=== PATIENT | female | born 1985 | race Caucasian/White ===

== ENCOUNTER 2017-04-23 06:00 | Inpatient (IN) ==
[2017-04-23] MEDS ORDERED: D5LR 1,000 ML IV PRN (06:14)
[2017-04-23] MEDS ORDERED: ACETAMINOPHEN 500 MG TABLET PO PRN (06:14)
[2017-04-23] MEDS ORDERED: METHYLERGONOVINE 0.2 MG/ML INJECTION IM PRN (06:14)
[2017-04-23] MEDS ORDERED: CARBOPROST 250 MCG/ML INJECTION IM PRN (06:14)
[2017-04-23] MEDS ORDERED: MAG-AL + SIM ORAL LIQUID 30ml PO PRN (06:14)
[2017-04-23] MEDS ORDERED: LIDOCAINE 1% (10mg/ml) 2mL INJ PF SDV ID PRN (06:14)
[2017-04-23] MEDS ORDERED: CALCIUM CARBONATE Chewable 500mg TABLET PO PRN (06:14)
[2017-04-23] MEDS ORDERED: OXYTOCIN DRIP 30 UNIT/500 ML ML IV PRN (06:14)
--- OUTSIDE RECORDS SUMMARY | 2017-04-23 06:18 | External Medical Summary | Continuity of Care Document ---
:1985 Author Organization [facility] Address [address] [place], [place] [id number] Phone Allergies, Adverse Reactions, Alerts Substance Reaction Severity Status No Known Drug Allergies Unknown Active Medications Medication Instructions Dosage Effective Dates Status Comments (start - stop) levothyroxine 50 mcg take 1 tablet by 50 MCG - Active tablet oral route every day Vitamin take 1 tablet by Not Available - Active tablet oral route every day ferrous sulfate 325 take 1 tablet by 325 MG - Active mg (65 mg iron) ORAL route 2 times tablet every day Problems Condition Effective Dates (start - stop) Clinical Status Maternal care for excess growth, - second tri, unsp Endo, nutritional and metab diseases - comp preg, second tri 18 weeks gestation of - Maternal care for excess growth, - second tri, unsp Endo, nutritional and metab diseases - comp preg, second tri 20 weeks gestation of - Endo, nutritional and metab diseases - comp preg, second tri Encounter for suprvsn of normal - , second trimester 27 weeks gestation of - Endo, nutritional and metab diseases - comp preg, second tri Encounter for suprvsn of normal - , second trimester 14 weeks gestation of - Pap Smear Screening, Cervix - Encounter for suprvsn of normal - , first trimester 9 weeks gestation of - Encounter for suprvsn of normal - , second trimester 20 weeks gestation of - Encounter for suprvsn of normal - , third trimester 29 weeks gestation of - Encounter for suprvsn of normal - , third trimester 31 weeks gestation of - Procedures Procedure Date Unknown Results Test Name Date and Time Measure Units Reference Range Abnormal Flag Comments Unknown Advance Directives Directive Yes / No Effective Date File Name Unknown Encounters Encounter Practice Location Reason(s) Diagnoses Date Provider Care Description For Visit Team Members Soha [place] Encounter for Nov-0 [place] [facility] suprvsn of 9- [facility], normal 7 [address], , third [place], [id number] Center [id number], weeks gestation Dr [facility] of 120, tel:[phone], [id number] , [place]. tel:[phone] Soha [place] Encounter for Oct-2 [place] [facility] suprvsn of 6-201 [facility] CINDY, normal 7 [address], , third [place], [id number] Center [id number], weeks gestation Dr [facility] of 120, tel:[phone], [id number] , [place]. tel:[phone] Soha [place] Oct-2 [place] [facility] 4-201 [facility], 7 700 [address], [place], Center [id number], [facility] 120, tel:[phone] [facility] [place], [id number] , [place]. tel:[phone] Soha [place] Oct-1 [place] [facility] 0-201 [facility], 7 700 [address], [place], Center [id number], , [facility] 120, tel:[phone], [id number] , [place]. tel:[phone] Soha [place] Endo, Oct-0 [place] [facility] nutritional and 9-201 [facility], metab diseases 7 [address], comp preg, [place], second Center [id number], triEncounter for [facility] suprvsn of 120, tel:[phone] normal [place], [address] , [place], second [id number] , [place]. weeks gestation tel:[phone] [facility] [place] Encounter for Aug-2 [place] [facility] suprvsn of 8-201 [facility], normal 7 [address], , [place], second Center [id number], [email or web address] [place] weeks gestation 120, tel:+21 of [place], [address] [place], [id number] , [place]. tel: [phone] [facility] [place] Maternal care Aug-2 [place] [facility]om[facility] Ultrasound for excess 8-201 [facility], growth, second 7 [address], tri, unspEndo, [place], nutritional and Center [id number], metab diseases , [facility] comp preg, 120, tel:+ second tri20 [place], [address] weeks gestation [place], of [id number] , [place]. tel: [phone] Soha [place] Maternal care Nov-1 [place] In Womens for excess 7-201 [facility], growth, second 7 [address], tri, unspEndo, [place], nutritional and Center [id number], metab diseases Dr [facility] comp preg, 120, tel:[phone] second tri18 [place], [address] weeks gestation [place], of [id number] , [place]. tel: [phone] Soha [place] Endo, Oct- [place] [facility] nutritional and -201 [facility], metab diseases 7 [address], comp preg, [place], second Center [id number], [facility], suprvsn of Suite tel:+[phone] normal 120, [address] , [place], second [place], [id number] [address], weeks gestation [place]. of tel: [phone] Soha [place] Greg- [place] In Womens 5-201 [facility], 7 700 [address], [place], Center [id number], [place] 120, tel:+21 [place], [address] [place], [id number] , [place]. tel: [phone] [facility] [place] Pap Smear Sep- [place] [facility]om[facility] Screening, 4-201 [facility] CINDY, CervixEncounter 7 [address], for suprvsn of [place], normal Center [id number], , first [place] trimester9 weeks 120, tel:[phone] gestation of [place], [address] [place], [id number] , [place]. tel: [phone] Soha [place] Sep- [place] In Womens 2-201 [facility], 7 700 [address], [place], Center [id number], [place] 120, tel:[phone] [place] [address] [place], [id number] , [place]. tel: [phone] Family History Family Member Diagnosis Age At Onset No family history of Pulmonary Embolism Mother Gynecological Problem 27 No family history of Uterine Cancer No family history of Venous Thrombosis No family history of Breast Cancer No family history of Colon Cancer Immunizations Vaccine Date Status Comments Tdap completed Source: Other Provider Payers Payer name Insurance type Covered alliance party ID Authorization(s) [facility] - [id number] Medicaid Social History Type Description Quantity Date Captured Alcohol Use Details No Caffeine Use Details Unknown Tobacco Use Status Unknown Smoking Status Never smoker Vital Signs Date / Height Weight BMI Pulse Blood Temperature Respiratory Body Head BMI Time: Rate Pressure Rate Surface Circumference percentile Area 35.8 8 3:41 kg/m PM eter (2) Chief Complaint And Reason For Visit Unknown Chief Complaint And Reason For Visit Reason For Referral Reason For Referral Unknown Plan Of Care Date Type Action Status Appointment Katy Ayers BOOKED Future Order: Radiology Order Complete OB Ultrasound > 14 Ordered Weeks ([id number]) Date Type Problem Goal Intervention Status Start Date Unknown. History Of Present Illness Encounter Date Complaint History Of Present Illness This patient has no known history of present illness Functional Status Encounter Date Functional Assessment Cognitive Assessment Unknown Medications Administered Medication Instructions Dosage Effective Dates (start - stop) Status Comments Drug Treatment Unknown Instructions Date Instruction Additional Information HIV and other routine tests risk factors identified by history anticipated course of care nutrition and weight gain counseling, special diet toxoplasmosis precautions (cats / raw meat) exercise indications for ultrasound environmental / work hazards travel tobacco (ask, advise, assess, assist and arrange) alcohol illicit / recreational drugs use of any medications (including supplements, vitamins, herbs, OTC drugs) smoking counseling domestic violence seat belt use genetic testing new ob handbook Zika virus assessment & precautions 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
--- OUTSIDE RECORDS SUMMARY | 2017-04-23 06:18 | External Medical Summary | Continuity of Care Document ---
:1985 Author Organization [facility] Address [address] [place], [place] [id number] Phone Allergies, Adverse Reactions, Alerts Substance Reaction Severity Status No Known Drug Allergies Unknown Active Medications Medication Instructions Dosage Effective Dates Status Comments (start - stop) levothyroxine 50 mcg take 1 tablet by 50 MCG - Active tablet oral route every day Vitamin take 1 tablet by Not Available - Active tablet oral route every day Problems Condition Effective Dates (start - stop) Clinical Status Maternal care for excess growth, - second tri, unsp Endo, nutritional and metab diseases - comp preg, second tri 20 weeks gestation of - Maternal care for excess growth, - second tri, unsp Endo, nutritional and metab diseases - comp preg, second tri 18 weeks gestation of - Endo, nutritional and metab diseases - comp preg, second tri Encounter for suprvsn of normal - , second trimester 14 weeks gestation of - 9 weeks gestation of - Pap Smear Screening, Cervix - Encounter for suprvsn of normal - , first trimester 20 weeks gestation of - Encounter for suprvsn of normal - , second trimester Procedures Procedure Date Ultrasound exam of preg uterus, complete Results Test Name Date and Time Measure Units Reference Range Abnormal Flag Comments Unknown Advance Directives Directive Yes / No Effective Date File Name Unknown Encounters Encounter Practice Location Reason(s) Diagnoses Date Provider Care Description For Visit Team Members Soha [place] 20 weeks gestation [place] [facility] 8-201 [facility], pregnancyEncounter 7 700 [address] for suprvsn of Medical [address]22, normal , [facility], second trimester [place], 120, [id number], [facility] [place], tel:[phone] , [place]. tel: [phone] [facility] [place] Maternal care for Aug-2 [place] [facility] Ultrasound excess 8-201 [facility], growth, second tri, 7 700 PO Box unspEndo, Medical 1522, nutritional and Center [place], metab diseases comp [place], preg, second tri20 120, [id number], weeks gestation of [facility] [place], tel:[phone] , [place]. tel: [phone] [facility] [place] Maternal care for Aug-1 [place] In Womens excess 7-201 [facility], growth, second tri, 7 700 PO Box unspEndo, Medical 1522, nutritional and [facility], metab diseases comp [place], preg, second tri18 120, [id number], weeks gestation of [facility] [place], tel:[phone] , [place]. tel: [phone] [facility] [place] Endo, nutritional Oct-2 [place] [facility]omens and metab diseases 1-201 [facility], comp preg, second 7 700 PO Box triEncounter for Medical 1522, suprvsn of [facility], , second Drive, [place], [email or web address] weeks Suite , gestation of 120, [place], tel:+ [place], 114, [place]. tel: [phone] [facility] [place] Greg-1 [place] In Womens 5-201 [facility], 7 700 PO Box Medical [address]22, [facility], [place], 120, [id number], [facility] [place], tel:[phone] , [place]. tel: [phone] [facility] 9 weeks gestation Greg-1 [place] In Womens of pregnancyPap 4-201 [facility], Smear Screening, 7 700 PO Box CervixEncounter for Medical 1522, suprvsn of [facility], , first [place], trimester 120, , [place], tel: [phone] , [place]. tel: [phone] Soha [place] Sep- [place] In Womens 2-201 [facility], 7 700 PO [address] Medical [address], [place], [place], 120, , [place], tel: [phone] , [place]. tel: [phone] Family History Family Member Diagnosis Age At Onset No family history of Pulmonary Embolism Mother Gynecological Problem 27 No family history of Uterine Cancer No family history of Venous Thrombosis No family history of Breast Cancer No family history of Colon Cancer Immunizations Vaccine Date Status Comments Unknown Payers Payer name Insurance type Covered green party ID Authorization(s) [facility] - [id number] Medicaid Social History Type Description Quantity Date Captured Unknown Vital Signs Date / Height Weight BMI Pulse Blood Temperature Respiratory Body Head BMI Time: Rate Pressure Rate Surface Circumference percentile Area Unknown Chief Complaint And Reason For Visit Unknown Chief Complaint And Reason For Visit Reason For Referral Reason For Referral Unknown Plan Of Care Date Type Action Status Appointment Katy Ayers BOOKED Future Order: Radiology Order Complete OB Ultrasound > 14 Ordered Weeks ([id number]) Date Type Problem Goal Intervention Status Start [...]
--- OUTSIDE RECORDS SUMMARY | 2017-04-23 06:19 | External Medical Summary | Continuity of Care Document ---
:1985 Author Organization [facility] Address [address] [place], [place] [address] Phone Allergies, Adverse Reactions, Alerts Substance Reaction Severity Status No Known Drug Allergies Unknown Active Medications Medication Instructions Dosage Effective Dates Status Comments (start - stop) levothyroxine 75 mcg take 1 tablet by 75 MCG - Active tablet oral route every day fluoxetine 20 mg take 1 capsule by 20 MG - Active capsule oral route every day in the morning Vitamin take 1 tablet by Not Available [...] second trimester 14 weeks gestation of - Endo, nutritional and metab diseases - comp preg, third tri Encounter for suprvsn of normal - , third trimester 33 weeks gestation of - Pap Smear Screening, [...] third trimester 31 weeks gestation of - Encounter for suprvsn of normal - , third trimester 35 weeks gestation of - Procedures Procedure Date Unknown Results Test Name Date and Time Measure Units Reference Range Abnormal Flag Comments Unknown Advance Directives Directive Yes / No Effective Date File Name Unknown Encounters Encounter Practice Location Reason(s) Diagnoses Date Provider Care Description For Visit Team Members Soha [place] Encounter for [place] In [facility]om[facility] suprvsn of 6-201 [facility], normal 7 [address], , third [place], [id number] Center [id number], weeks gestation [place] of 120, tel:[phone] [facility] [address] [place], [id number] , [place]. tel:[phone] Soha [place] Nov-2 [place] In Womens 3-201 [facility], 7 700 [address], [place], [place] [id number], [place] 120, tel:[phone] [facility] [address] [place], [id number] , [place]. tel:[phone] Soha [place] Endo, Nov-2 [place] In Womens nutritional and 2-201 [facility], metab diseases 7 700 [address], comp preg, third [place], triEncounter for [place] [id number], suprvsn of [place] normal 120, tel:[phone] , third [place], [address] [id number] [place], weeks gestation [id number] of , [place]. tel:[phone] Soha [place] Nov-1 [place] In Womens 6-201 [facility], 7 700 [address], [place], Center [id number], [place] 120, tel:[phone] [place], [address] [place], [id number] , [place]. tel: [phone] Soha [place] Encounter for Nov-0 [place] In Womens suprvsn of 9-201 [facility], normal 7 700 [address], , third [place], Center [id number], weeks gestation [place] of 120, tel:[phone] [place], [address] [place], [id number] , [place]. tel: [phone] Soha [place] Encounter for Oct-2 [place] In Womens suprvsn of 6-201 [facility], normal 7 700 [address], , third [place], [id number] Center [id number], weeks gestation [place] of 120, tel:+[phone] [place], [address] [place], [id number] , [place]. tel: [phone] Soha [place] Oct-1 [place] In Womens 0-201 [facility], 7 700 [address], [place], Center [id number], Dr [facility] 120, tel:[phone] [place] [address], [id number] , [place]. tel: [phone] Soha [place] Endo, Oct-0 [place] In Womens nutritional and 9-201 [facility], metab diseases 7 700 [address], comp preg, [place], second Center [id number], triEncounter for [place] suprvsn of 120, tel:+[phone] normal [place], [address] , [place], second [id number] , [place]. weeks gestation tel:[phone] of [phone] Soha [place] Encounter for Aug-2 [place] [facility]201 [facility], normal 7 700 [address], , [place], second Center [id number], [email or web address] [place] weeks gestation 120, tel:[phone] of [place] [address] [place], [id number] , [place]. tel: [phone] Soha [place] Maternal care Aug-2 [place] In Womens Ultrasound for excess 8-201 [facility], growth, second 7 700 [address], tri, unspEndo, [place], nutritional and Center [id number], metab diseases , [facility] comp preg, 120, tel:+[phone] second tri20 [place], [address] weeks gestation [place], of [id number] , [place]. tel: [phone] [facility] [place] Maternal care Nov- [place] In Womens for excess 7-201 [facility], growth, second 7 700 [address], tri, unspEndo, [place], nutritional and Center [id number], metab diseases , [facility] comp preg, 120, tel:[phone] second tri18 [place], [address] weeks gestation [place], of [id number] , [place]. tel: [phone] [facility] [place] Endo, [place] In Womens nutritional and 1-201 [facility], metab diseases 7 700 [address], comp preg, [place], second Center [id number], triEncounter for [facility], suprvsn of Suite tel:[phone] normal 120, [address] , [place], second [place], [id number] [address], weeks gestation [place]. of tel: [phone] [facility] [place] Greg- [place] In Womens 5-201 [facility] CINDY, 7 700 [address], [place], Center [id number], [place] 120, tel:[phone] [place], [address] [place], [id number] , [place]. tel: [phone] [facility] [place] Pap Smear Greg- [place] In Womens Screening, 4-201 [facility], CervixEncounter 7 700 [address], for suprvsn of [place], normal Center [id number], , first [place] trimester9 weeks 120, tel:[phone] gestation of [place], [address] [place], [id number] , [place]. tel: [phone] [facility] [place] Greg- [place] In Womens 2-201 [facility], 7 700 [address], [place], Center [id number], [place] 120, tel:-[phone] [place], [address] [place], [id number] , [place]. tel: [phone] Family History Family Member Diagnosis Age At Onset No family history of Pulmonary Embolism Mother Gynecological Problem 27 No family history of Uterine Cancer No family history of Venous Thrombosis No family history of Breast Cancer No family history of Colon Cancer Immunizations Vaccine Date Status Comments Tdap completed Source: Other Provider Payers Payer name Insurance type Covered alliance party ID Authorization(s) [facility] - [id number] Medicaid Social History Type Description Quantity Date [...] Complete OB Ultrasound > 14 Ordered Weeks (43602) Date Type Problem Goal Intervention Status Start Date Unknown. History Of Present Illness Encounter Date Complaint History Of Present Illness This patient has no known history of present illness Functional Status Encounter Date Functional Assessment Cognitive Assessment Unknown Medications Administered Medication Instructions Dosage Effective Dates (start - stop) Status Comments Drug Treatment Unknown Instructions Date Instruction Additional Information labor signs group B strep screening HIV and other routine tests risk factors [...]
--- OUTSIDE RECORDS SUMMARY | 2017-04-23 06:19 | External Medical Summary | Continuity of Care Document ---
:1985 Author Organization [facility] Address [address] [place], [place] [id number] Phone Allergies, Adverse Reactions, Alerts Substance Reaction Severity Status No Known Drug Allergies Unknown Active Medications Medication Instructions Dosage Effective Dates Status Comments (start - stop) Vitamin take 1 tablet by Not Available - Active tablet oral route every day levothyroxine 25 mcg take 1 tablet by 25 MCG - Active tablet oral route every day Problems Condition Effective Dates (start - stop) Clinical Status Endo, nutritional and metab diseases - comp preg, second tri Encounter for suprvsn of normal - , second trimester 14 weeks gestation of - Pap Smear Screening, Cervix - Encounter for suprvsn of normal - , first trimester 9 weeks gestation of - Procedures Procedure Date Unknown Results Test Name Date and Time Measure Units Reference Range Abnormal Flag Comments Unknown Advance Directives Directive Yes / No Effective Date File Name Unknown Encounters Encounter Practice Location Reason(s) Diagnoses Date Provider Care Description For Visit Team Members Soha [place] [facility] Womens -2016 [facility], 700 [address], Medical [place], [place], [place] [id number], Drive, Suite tel:+21 120, [address] [place], [address], [place]. tel: [phone] Soha [place] Endo, nutritional [place] In Women and metab -2016 [facility], diseases comp 700 [address], preg, second Medical [place], [place], triEncounter for [place] [id number], suprvsn of normal Drive, , second Suite tel:[phone] [id number] weeks 120, [address] gestation of [place], [facility], [address], [place]. tel: [phone] Soha [place] 15 [place] In Womens -2016 [facility] CINDY, 700 [address], [place], [place], [place] [id number], Dr [facility] [place] 120, tel:+[phone] [place] [address] [place], [id number] , [place]. tel: [phone] Soha [place] Pap Smear Sep- [place] In Womens Screening [facility] CINDY, CervixEncounter 700 [address], for suprvsn of [place], [place], normal , Center [id number], first trimester9 , [facility] weeks gestation 120, tel:+[phone], [id number] , [place]. tel: [phone] Soha [place] 12 [place] In Women [facility] CINDY, 700 [address], [place], [place], [place] [id number], Dr [facility] 120, tel:+[phone], [id number] , [place]. tel: [phone] Family History Family Member Diagnosis Age At Onset No family history of Pulmonary Embolism Mother Gynecological Problem 27 No family history of Uterine Cancer No family history of Venous Thrombosis No family history of Breast Cancer No family history of Colon Cancer Immunizations Vaccine Date Status Comments Unknown Payers Payer name Insurance type Covered constitution party ID Authorization(s) [facility] - [id number] Medicaid Social History Type Description Quantity Date [...] Type Action Status Appointment Katy Ayers BOOKED Date Type Problem Goal Intervention Status Start [...]
--- OUTSIDE RECORDS SUMMARY | 2017-04-23 06:19 | External Medical Summary | Continuity of Care Document ---
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 [id number] [place] [address]Ulyhqvsb: PATRICIA TAMAYO DO,MPH Advance Directives Directive Yes / No Effective Date File Name Unknown Encounters Encounter Practice Location Reason(s) Diagnoses Date Provider Care Description For Visit Team Members Soha [place] Encounter for Mar- [place] In Womens suprvsn of 6-201 [facility], normal 7 700 [address], , third [place], [id number] [place] [id number], weeks gestation [place] of 120, tel:[phone] [place] [address] [place], [id number] , [place]. tel:[phone] Soha [place] Feb-2 [place] In Womens 3-201 [facility], 7 700 [address], [place], [place] [id number], [place] 120, tel:[phone] [place] [address] [place], [id number] , [place]. tel:[phone] Soha [place] Endo, Nov-2 [place] In Womens nutritional and 2-201 [facility], metab diseases 7 700 [address], comp preg, third [place], triEncounter for Center [id number], suprvsn of [place] normal 120, tel:[phone] , third [place], [address] [email or web address] [place], weeks gestation [id number] of , [place]. tel:[phone] Soha [place] Nov-1 [place] In Womens 6-201 [facility], 7 700 [address], [place], Center [id number], [place] 120, tel:[phone] [place] [address] [place], [id number] , [place]. tel:[phone] Soha [place] Encounter for Nov-0 [place] In Womens suprn of 9- [facility], normal 7 700 [address], , third [place], Center [id number], weeks gestation [place] of 120, tel:[phone] [place] [address] [place], [id number] , [place]. tel:[phone] Soha [place] Encounter for Oct-2 [place] [facility]-201 [facility], normal 7 700 [address], , third [place], [id number] Center [id number], weeks gestation [place] of 120, tel:[phone] [place] [address] [place], [id number] , [place]. tel:[phone] Soha [place] Oct-1 [place] In Womens 0-201 [facility], 7 700 [address], [place], Center [id number], [place] 120, tel:[phone] [place] [address] [place], [id number] , [place]. tel:[phone] Soha [place] Endo, Oct-0 [place] In Womens nutritional and 9-201 [facility], metab diseases 7 [address], comp preg, [place], second Center [id number], triEncounter for [place] suprvsn of 120, tel:[phone] normal [place], [address] , [place], second [id number] , [place]. weeks gestation tel:[phone] of [phone] Associates [facility] Encounter for Aug-2 [place] In Womens suprvsn of 8-201 [facility], normal 7 700 [address], , [place], second Center [id number], [email or web address] [place] weeks gestation 120, tel:+21 of [place], [address] [place], [id number] , [place]. tel: [phone] [facility] Maternal care Aug-2 [place] In Womens Ultrasound for excess 8-201 [facility], growth, second 7 [address], tri, unspEndo, [place], nutritional and Center [id number], metab diseases , [facility] comp preg, 120, tel:+21 second tri20 [place], [address] weeks gestation [place], of [id number] , [place]. tel: [phone] Soha [place] Maternal care Nov-1 [place] In Womens for excess 7-201 [facility], growth, second 7 700 [address], tri, unspEndo, [place], nutritional and Center [id number], metab diseases Dr [facility] comp preg, 120, tel:+21 second tri18 [place], [address] weeks gestation [place], of [id number] , [place]. tel: [phone] [facility] Endo, Oct- [place] In Womens nutritional and 1-201 [facility], metab diseases 7 700 [address], comp preg, [place], second Center [id number], [facility], suprvsn of Suite tel:+21 normal 120, [address] , [place], second [place], [id number] [address], weeks gestation [place]. of tel: [phone] Soha [place] Greg- [place] In Womens 5-201 [facility], 7 700 [address], [place], Center [id number], [place] 120, tel:[phone] [place], [address] [place], [id number] , [place]. tel: [phone] [facility] Pap Smear Sep- [place] In Womens Screening, 4-201 [facility] [employer] CINDY, CervixEncounter 7 [address], for suprvsn of [place], normal Center [id number], , first [place] trimester9 weeks 120, tel:[phone] gestation of [place], [address] [place], [id number] , [place]. tel: [phone] Soha [place] Sep- [place] In Womens 2-201 [facility] [employer] [place], 7 700 [address], [place], Center [id number], [place] 120, tel:[phone] [place] [address] [place], [id number] , [place]. tel: [phone] Family History Family Member Diagnosis Age At Onset No family history of Pulmonary Embolism Mother Gynecological Problem 27 No family history of Uterine Cancer No family history of Venous Thrombosis No family history of Breast Cancer No family history of Colon Cancer Immunizations Vaccine Date Status Comments Tdap completed Source: Other Provider Payers Payer name Insurance type Covered libertarian ID Authorization(s) [facility] - [id number] Medicaid Social History Type Description Quantity Date Captured Alcohol Use Details No Caffeine Use Details Unknown Tobacco Use Status Unknown Smoking Status Never smoker Vital Signs Date / Height Weight BMI Pulse Blood Temperature Respiratory Body Head BMI Time: Rate Pressure Rate Surface Circumference percentile Area 238.00 38.4 123/70 -2017 lbs 1 mm[Hg] 9:18 kg/m AM eter (2) 238.00 38.4 -2017 lbs 1 9:18 kg/m AM eter (2) Chief Complaint And Reason For Visit Unknown Chief Complaint And Reason For Visit Reason For Referral Reason For Referral Unknown Plan Of Care Date Type Action Status Appointment Katy Ayers BOOKED Future Order: Radiology Order Complete OB Ultrasound > 14 Ordered Weeks ([id number]) Date Type Problem Goal Intervention Status Start [...]
--- OUTSIDE RECORDS SUMMARY | 2017-04-23 06:19 | External Medical Summary | Continuity of Care Document ---
:1985 Author Organization [facility] [employer] [facility] Address [address] [place], [place] [address] Phone Allergies, Adverse Reactions, Alerts Substance Reaction [...] Procedures Procedure Date OB Visit No Charge Results Test Name Date and Time Measure Units Reference Range Abnormal Flag Comments Panel Description: Thyrotropin [Units/volume] in Serum or Plasma TSH 15:05:00 3.99 mIU/L N Reference Range > or=20 Years 0.40-4.50 Ranges First trimester 0.26-2.66 Second trimester 0.55-2.73 Third trimester 0.43-2.91Test performed at [facility] [id number] [place] [address]Lstmtciv: PATRICIA TAMAYO DO,MPH Advance Directives Directive Yes / No Effective Date File Name Unknown Encounters Encounter Practice Location Reason(s) Diagnoses Date Provider Care Description For Visit Team Members [facility] Payne, nutritional [facility] In [facility] and metab -2016 [facility], diseases comp [address], preg, second [place], triEncounter for Center [id number], suprvsn of normal Drive, [place] , second Suite tel:+ [id number] weeks 120, [address] [place], [address], [place]. tel: [phone] [facility] Sep-15 [place] In Womens -2016 [facility], 700 [address], [place], [place], Center [id number], , [facility] [place] 120, tel:+ Alex[address]ander[address], [id number] , [place]. tel: [phone] [facility] Pap Smear Sep- [place] In Womens Screening, [facility], CervixEncounter 700 [address], for suprvsn of [place], normal , Center [id number], first trimester9 , [place] weeks gestation 120, tel:+ of [address], [id number] , [place]. tel: [phone] Associates [facility] Sep-12 [place] In Womens -2016 [facility], 700 [address], [place], Center [id number], , [facility] [place] 120, tel:+[address], [id number] , [place]. tel: [phone] Family History Family Member Diagnosis Age At Onset No family history of Pulmonary Embolism Mother Gynecological Problem 27 No family history of Uterine Cancer No family history of Venous Thrombosis No family history of Breast Cancer No family history of Colon Cancer Immunizations Vaccine Date Status Comments Unknown Payers Payer name Insurance type Covered constitution party ID Authorization(s) [facility] - [id number] Medicaid Social History Type Description Quantity Date Captured Alcohol Use Details No Caffeine Use Details Unknown Tobacco Use Status Unknown Smoking Status Never smoker Vital Signs Date / Height Weight BMI Pulse Blood Temperature Respiratory Body Head BMI Time: Rate Pressure Rate Surface Circumference percentile Area 207.90 33.5 121/ -2017 lbs 5 mm[Hg] 2:29 kg/m PM eter (2) Chief Complaint And [...]
--- OUTSIDE RECORDS SUMMARY | 2017-04-23 06:19 | External Medical Summary | Continuity of Care Document ---
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 Name Date and Time Measure Units Reference Range Abnormal Flag Comments Panel Description: Glucose [Mass/volume] in Serum or Plasma --1 hour post 50 g glucose PO GLUCOSE, 122 mg/dL <140 N Test performed at [employer] [facility] 14:22:00 [employer] [place] [address] (50G)-[address] [place] [address]Oiainfsn: PATRICIA TAMAYO DO,MPH Panel Description: HEMOGLOBIN + HEMATOCRIT HEMOGLOBIN 14:22:00 9.0 g/dL 11.7-15.5 L HEMATOCRIT 14:22:00 28.1 % 35.0-45.0 L REPORT COMMENT:FASTING :NOTest performed at [employer] [id number] [place] [id number]: PATRICIA TAMAYO DO,MPH Panel Description: Thyrotropin [Units/volume] in Serum or Plasma TSH 14:22:00 2.67 mIU/L N Reference Range > or=20 Years 0.40-4.50 Ranges First trimester 0.26-2.66 Second trimester 0.55-2.73 Third trimester 0.43-2.91REPORT COMMENT:FASTING:NOTest performed at [employer] [id number] [place] [address]Tgschuny: PATRICIA TAMAYO DO,MPH Advance Directives Directive Yes / No Effective Date File Name Unknown Encounters Encounter Practice Location Reason(s) Diagnoses Date Provider Care Description For Visit Team Members [facility] Encounter for Jan- [place] In Womens suprvsn of 6-201 [facility], normal 7 700 [address], , third [place], Center [id number], weeks gestation [place] of 120, tel:[phone] [place], [address] [place], [id number] , [place]. tel: [phone] Soha [place] Jan- [place] In Womens 0-201 [facility], 7 700 [address], [place], Center [id number], [place] 120, tel:+21 [place], [address] [place], [id number] , [place]. tel: [phone] [facility] Payne, Oct-0 [place] In Womens nutritional and 9-201 [facility], metab diseases 7 700 [address], comp preg, [place], [facility] Center [id number], triEncounter for Dr [facility] suprvsn of 120, tel:[phone] normal [place], [address] , [place], second [id number] , [place]. weeks gestation tel:+[phone] of [phone] [facility] Encounter for Aug-2 [place] In Womens suprvsn of 8 [facility], normal 7 700 [address], , [place], second Center [id number], [email or web address] Dr [facility] weeks gestation 120, tel:+[phone] of [place], [address] [place], [id number] , [place]. tel: [phone] [facility] Maternal care Aug-2 [place] In Womens Ultrasound for excess 8- [facility], growth, second 7 700 [address], tri, unspEndo, [place], nutritional and Center [id number], metab diseases , [facility] comp preg, 120, tel:[phone] second tri20 [place], [address] weeks gestation [place], of [id number] , [place]. tel: [phone] Soha [place] Maternal care Aug-1 [place] In Womens for excess 7- [facility], growth, second 7 700 [address], tri, unspEndo, [place], nutritional and Center [id number], metab diseases Dr [facility] comp preg, 120, tel:[phone] second tri18 [place], [address] weeks gestation [place], of [id number] , [place]. tel: [phone] Soha Payne, Jourdan-2 [place] In Womens nutritional and [facility], metab diseases 7 700 [address], comp preg, [place], second Center [id number], [facility], suprvsn of Suite tel:+21 normal 120, [address] , [place], second [place], [id number] [address], weeks gestation [place]. of tel: [phone] [facility] Greg-1 [place] In Womens 5-201 [facility], 7 700 [address], [place], Center [id number], , [place] 120, tel:+[phone] [place] [address] [place], [id number] , [place]. tel: [phone] [facility] Pap Smear Greg-1 [place] In Womens Screening, 4-201 [facility], [facility] 700 [address], for suprvsn of [place], normal Center [id number], , first , [facility] trimester9 weeks 120, tel:+[phone] gestation of [place], [address] [place], [id number] , [place]. tel: [phone] [facility] Greg-1 [place] In Womens 2-201 [facility], 7 700 [address], [place], Center [id number], , [place] 120, tel:+21 [place] [address] [place], [id number] , [place]. tel: [phone] Family History Family Member Diagnosis Age At Onset No family history of Pulmonary Embolism Mother Gynecological Problem 27 No family history of Uterine Cancer No family history of Venous Thrombosis No family history of Breast Cancer No family history of Colon Cancer Immunizations Vaccine Date Status Comments Unknown Payers Payer name Insurance type Covered constitution party ID Authorization(s) [facility] - [id number] Medicaid Social History Type Description Quantity Date Captured Alcohol Use Details No Caffeine Use Details Unknown Tobacco Use Status Unknown Smoking Status Never smoker Vital Signs Date / Height Weight BMI Pulse Blood Temperature Respiratory Body Head BMI Time: Rate Pressure Rate Surface Circumference percentile Area 222.30 35.8 114/68 lbs 8 mm[Hg] 1:28 kg/m PM eter (2) 34.2 2017 5 1:16 kg/m PM eter (2) Chief Complaint And Reason For Visit Unknown Chief Complaint And Reason For Visit Reason For Referral Reason For Referral Unknown Plan Of Care Date Type Action Status Appointment Katy Ayers BOOKED Future Order: Radiology Order Complete OB Ultrasound > 14 Ordered Weeks ([id number]) Date Type Problem Goal Intervention Status Start [...]
--- OUTSIDE RECORDS SUMMARY | 2017-04-23 06:19 | External Medical Summary | Continuity of Care Document ---
:1985 Author Organization [facility] Address [address] [place], [place] [address] Phone Allergies, Adverse Reactions, Alerts Substance Reaction [...] - , second trimester Procedures Procedure Date OB Visit No Charge Results Test Name Date and Time Measure Units Reference Range Abnormal Flag Comments Panel Description: Thyrotropin [Units/volume] in Serum or Plasma TSH 11:31:00 8.90 mIU/L H Reference Range > or=20 Years 0.40-4.50 Ranges First trimester 0.26-2.66 Second trimester 0.55-2.73 Third trimester 0.43-2.91Test performed at [employer] [id number] [place] [address]Hdmfydje: PATRICIA TAMAYO DO,MPH Advance Directives Directive Yes / No Effective Date File Name Unknown Encounters Encounter Practice Location Reason(s) Diagnoses Date Provider Care Description For Visit Team Members Soha [place] 20 weeks gestation Nov-2 [place] In Womens of 8-201 [facility], pregnancyEncounter 7 700 [address] for suprvsn of Medical 1522, normal , Center [place], second trimester [place], 120, , [facility] [place], tel:+[phone] , [place]. tel:[phone] [facility] [place] Maternal care for Nov- [place] In Womens Ultrasound excess 8-201 [facility], growth, second tri, 7 700 PO Box unspEndo, Medical 1522, nutritional and Center [place], metab diseases comp [place], preg, second tri20 120, [id number], weeks gestation of [facility] [place], tel:[phone] [address] , [place]. tel:[phone] [facility] Maternal care for Nov- [place] In Womens excess 7-201 [facility], growth, second tri, 7 700 PO Box unspEndo, Medical 1522, nutritional and Center [place], metab diseases comp [place], preg, second tri18 120, [id number], weeks gestation of [facility] [place], tel:+[phone] , [place]. tel:[phone] [facility] Endo, nutritional Oct- [place] In Womens and metab diseases 1-201 [place], comp preg, second 7 700 PO Box triEncounter for Medical 1522, suprvsn of normal Center [place], , second Drive, [place], [id number] weeks Suite , gestation of 120, [place], tel:+[phone] PATSY, 114, [place]. tel: [phone] Soha [place] Greg-1 [place] In Womens 5-201 [facility], 7 700 PO [address] Medical [address], [address] [place], [place], 120, [id number], [place], tel:[phone] , [place]. tel: [phone] [facility] 9 weeks gestation Greg- [place] In Womens of pregnancyPap 4-201 [facility], Smear Screening, 7 700 PO Box CervixEncounter for Medical 1522, suprvsn of normal [facility], , first , [place], trimester 120, , [place], [place], tel:+[phone] , [place]. tel:[phone] [facility] Greg- [place] In Womens 2-201 [facility], 7 700 PO [address] Medical [address], [address] [place] [address] [place], 120, , [facility] [place], tel:[phone] , [place]. tel: [phone] Family History Family Member Diagnosis Age At Onset No family history of Pulmonary Embolism Mother Gynecological Problem 27 No family history of Uterine Cancer No family history of Venous Thrombosis No family history of Breast Cancer No family history of Colon Cancer Immunizations Vaccine Date Status Comments Unknown Payers Payer name Insurance type Covered alliance party ID Authorization(s) [facility] - [id number] Medicaid Social History Type Description Quantity Date Captured Alcohol Use Details No Caffeine Use Details Unknown Tobacco Use Status Unknown Smoking Status Never smoker Vital Signs Date / Height Weight BMI Pulse Blood Temperature Respiratory Body Head BMI Time: Rate Pressure Rate Surface Circumference percentile Area 214.50 34.6 lbs 2 mm[Hg] 11:09 kg/m AM eter (2) Chief Complaint And Reason For Visit Unknown Chief Complaint And Reason For Visit Reason For Referral Reason For Referral Unknown Plan Of Care Date Type Action Status Appointment Katy Ayers BOOKED Future Order: Radiology Order Complete OB Ultrasound > 14 Ordered Weeks ([id number]) Date Type Problem Goal Intervention Status Start [...]
--- OUTSIDE RECORDS SUMMARY | 2017-04-23 06:19 | External Medical Summary | Continuity of Care Document ---
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, normal 7 700 [address], , [place], second Center [id number], [email or web address] [place] weeks gestation 120, tel:+[phone] of [place], [address] PATSY, [id number] , [place]. tel: [phone] [facility] Maternal care Aug-2 [place] In Womens Ultrasound for excess 8-201 [facility], growth, second 7 700 [address], tri, unspEndo, [place], nutritional and Center [id number], metab diseases , [facility] comp preg, 120, tel:+[phone] second tri20 [place], [address] weeks gestation [place], of [id number] , [place]. tel: [phone] [facility] Maternal care Aug- [place] In Womens for excess 7-201 [facility], growth, second 7 700 [address], tri, unspEndo, [place], nutritional and Center [id number], metab diseases , [facility] comp preg, 120, tel:+[phone] second tri18 [place], [address] weeks gestation [place], of [id number] , [place]. tel: [phone] [facility] Endo, Oct- Sobbing In Womens nutritional and 1-201 [facility] CINDY, metab diseases 7 700 [address], comp preg, [place], [place], [facility] Center [id number], [facility] suprvsn of Suite tel:+21 normal 120, [address] , Alexsander [facility], [id number] [address], weeks gestation [place]. of tel: [phone] [facility] Greg- [place] In Womens 5-201 [facility], 7 700 [address], [place], [place], Center [id number], Dr [facility] 120, tel:+[phone] [place], [address] [place], [id number] , [place]. tel: [phone] [facility] 9 weeks Greg-1 [place] In Womens gestation of 4-201 [facility], pregnancyPap 7 700 [address], Smear Screening, [facility] [id number], for suprvsn of [place] normal 120, tel:+[phone] , first [place], [address] trimester [place], [id number] , [place]. tel: [phone] [facility] [place] In Womens 2-201 [facility] [place], 7 700 [address], [place], [place] [id number], [place] 120, tel:+21 [place] [address] [place], [id number] , [place]. tel: [phone] Family History Family Member Diagnosis Age At Onset No family history of Pulmonary Embolism Mother Gynecological Problem 27 No family history of Uterine Cancer No family history of Venous Thrombosis No family history of Breast Cancer No family history of Colon Cancer Immunizations Vaccine Date Status Comments Unknown Payers Payer name Insurance type Covered alliance party ID Authorization(s) [facility] - [id number] Medicaid Social History Type Description Quantity Date [...] Complete OB Ultrasound > 14 Ordered Weeks ([id number]) Date Type Problem Goal Intervention Status Start [...]
--- OUTSIDE RECORDS SUMMARY | 2017-04-23 06:19 | External Medical Summary | Continuity of Care Document ---
:1985 Author Organization [facility] Address [address] [place], [place] [id number] Phone Allergies, Adverse Reactions, Alerts Substance Reaction [...] Visit Team Members Soha Beltre Encounter for Oct-2 [place] In Womens suprvsn of 6-201 [facility], normal 7 [address], , third [place], [id number] Center [id number], weeks gestation Irving Tomlinson of 120, tel:[phone] [place] [address] [place], [id number] , [place]. tel: [phone] Soha Beltre Oct-1 [place] In Womens 0-201 [facility], 7 700 [address], [place], Center [id number], Irving Tomlinson 120, tel:+[phone] [place] [address], [id number] , [place]. tel: [phone] Soha Beltre Endo, Oct-0 [place] In Womens nutritional and 9-201 [facility], metab diseases 7 [address], comp preg, [place], second Center [id number], triEncounter for [facility] suprvsn of 120, tel:[phone] normal [place], [address] , [place], second [id number] , [place]. weeks gestation tel: of [phone] Soha Beltre Encounter for Aug-2 [facility]- [facility], normal 7 [address], , [place], second Center [id number], [email or web address] Irving Tomlinson weeks gestation 120, tel:[phone] of [place] [address] [place], [id number] , [place]. tel: [phone] Soha Beltre Maternal care Aug-2 [place] In Women Ultrasound for excess 8- [facility], growth, second 7 [address], tri, unspEndo, [place], nutritional and Center [id number], metab diseases Irving Tomlinson comp preg, 120, tel:[phone] second tri20 Alexsander, [address] weeks gestation [place], of [id number] , [place]. tel: [phone] [facility] Maternal care Aug- [place] In Womens for excess 7-201 [facility], growth, second 7 [address], tri, unspEndo, [place], nutritional and Center [id number], metab diseases , [facility] comp preg, 120, tel:[phone] second tri18 Alex[place], [address] weeks gestation [place], of [id number] , [place]. tel: [phone] [facility] Endo, Oct- Sobbing In Womens nutritional and 1-201 [facility], metab diseases 7 [address], comp preg, [place], second Center [id number], triEncounter for [facility], suprvsn of Suite tel:[phone] normal 120, [address] , [place], second [place], [id number] [address], weeks gestation [place]. of tel: [phone] [facility] [place] Greg-1 [place] In Womens 5-201 [facility], 7 700 [address], [place], Center [id number], , [facility] 120, tel:+[phone] [place] [address] [place], [id number] , [place]. tel: [phone] [facility] Pap Smear Greg- [place] In Womens Screening, 4-201 [facility], CervixEncounter 7 [address], for suprvsn of [place], normal Center [id number], , first , [facility] trimester9 weeks 120, tel:[phone] gestation of [place], [address] [place], [id number] , [place]. tel: [phone] [facility] Greg-1 [place] In Womens 2-201 [facility], 7 700 [address], [place], Center [id number], , [facility] 120, tel:[phone] [place] [address] [place], [id number] , [place]. tel: [phone] Family History Family Member Diagnosis Age At Onset No family history of Pulmonary Embolism Mother Gynecological Problem 27 No family history of Uterine Cancer No family history of Venous Thrombosis No family history of Breast Cancer No family history of Colon Cancer Immunizations Vaccine Date Status Comments Unknown Payers Payer name Insurance type Covered constitution party ID Authorization(s) [facility] - [id number] Medicaid Social History Type Description Quantity Date [...] Complete OB Ultrasound > 14 Ordered Weeks (01524) Date Type Problem Goal Intervention Status Start [...]
--- OUTSIDE RECORDS SUMMARY | 2017-04-23 06:19 | External Medical Summary | Continuity of Care Document ---
:1985 Author Organization [facility] Address [address] [place], [place] [id number] Phone Allergies, Adverse Reactions, Alerts Substance Reaction [...] 7 [address], , third [place], [email or web address] Center [id number], weeks gestation Irving Tomlinson of 120, tel:[phone] [facility] [address] [place], [id number] , [place]. tel:[phone] Soha Beltre Nov-2 [place] In Womens 3-201 [facility], 7 700 [address], [place], [place] [id number], Irving Tomlinson [place] 120, tel:[phone] [facility] [address] [place], [id number] , [place]. tel:[phone] Soha Beltre Endo, Nov-2 [place] In Womens nutritional and 2-201 [facility], metab diseases 7 [address], comp preg, third [place], triEncounter for [place] [id number], suprvsn of Irving Tomlinson normal 120, tel:[phone] , third [place], [address] [id number] [place], weeks gestation [id number] of , [place]. tel:[phone] Soha Beltre Nov-1 [place] In Womens 6-201 [facility], 7 700 [address], [place], Center [id number], Irving Tomlinson 120, tel:+[phone] [place], [address] [place], [id number] , [place]. tel: [phone] Soha Beltre Encounter for Nov-0 [place] In Womens suprvsn of 9-201 [facility], normal 7 [address], , third [place], [id number] Center [id number], weeks gestation Irving Tomlinson of 120, tel:+[phone] [place], [address] [place], [id number] , [place]. tel: [phone] Soha Beltre Encounter for Oct-2 [place] In Womens suprvsn of 6-201 [facility], normal 7 [address], , third [place], [id number] Center [id number], weeks gestation Irving Tomlinson of 120, tel:+[phone] [place], [address] [place], [id number] , [place]. tel: [phone] Soha Beltre Oct-1 [place] In Womens 0-201 [facility], 7 700 [address], [place], Center [id number], Dr [facility] 120, tel:[phone] [place] [address], [id number] , [place]. tel: [phone] Soha Beltre Endo, Oct-0 [place] In Womens nutritional and 9-201 [facility], metab diseases 7 [address], comp preg, [place], second Center [id number], triEncounter for Irving Tomlinson suprvsn of 120, tel:[phone] normal [place], [address] , [place], second [id number] , [place]. weeks gestation tel:[phone] of [phone] Soha Beltre Encounter for Aug-2 [facility] [facility]201 [facility], normal 7 [address], , [place], second Center [id number], [email or web address] Irving Tomlinson weeks gestation 120, tel:[phone] of [place] [address] [place], [id number] , [place]. tel: [phone] Soha Beltre Maternal care Aug-2 [place] In Womens Ultrasound for excess 8-201 [facility], growth, second 7 [address], tri, unspEndo, [place], nutritional and Center [id number], metab diseases , [facility] comp preg, 120, tel:[phone] second tri20 [place], [address] weeks gestation [place], of [id number] , [place]. tel: [phone] [facility] Maternal care Nov- [place] In Womens for excess 7-201 [facility], growth, second 7 700 [address], tri, unspEndo, [place], nutritional and Center [id number], metab diseases , [facility] comp preg, 120, tel:[phone] second tri18 [place], [address] weeks gestation [place], of [id number] , [place]. tel: [phone] [facility] Endo, Sobbing In Womens nutritional and 1-201 [facility], metab diseases 7 700 [address], comp preg, [place], second Center [id number], triEncounter for [facility], suprvsn of Suite tel:[phone] normal 120, [address] , [place], [place], [address], weeks gestation [place]. of tel: [phone] [facility] [place] Greg- [place] In Womens 5-201 [facility] CINDY, 7 [address], [place], Center [id number], Irving Tomlinson 120, tel:[phone] [place], [address] [place], [id number] , [place]. tel: [phone] [facility] Pap Smear Greg- [place] In Womens Screening, 4-201 [facility], CervixEncounter 7 [address], for suprvsn of [place], normal Center [id number], , first Irving Tomlinson trimester9 weeks 120, tel:[phone] gestation of [place], [address] [place], [id number] , [place]. tel: [phone] [facility] Greg- [place] In Womens 2-201 [facility], 7 700 [address], [place], Center [id number], Irving Tomlinson [place] 120, tel:-[phone] [place], [address] [place], [id number] , [place]. tel: [phone] Family History Family Member Diagnosis Age At Onset No family history of Pulmonary Embolism Mother Gynecological Problem 27 No family history of Uterine Cancer No family history of Venous Thrombosis No family history of Breast Cancer No family history of Colon Cancer Immunizations Vaccine Date Status Comments Tdap completed Source: Other Provider Payers Payer name Insurance type Covered democrat ID Authorization(s) [facility] - [id number] Medicaid Social History Type Description Quantity Date [...] Complete OB Ultrasound > 14 Ordered Weeks (71841) Date Type Problem Goal Intervention Status Start [...]
--- OUTSIDE RECORDS SUMMARY | 2017-04-23 06:19 | External Medical Summary | Continuity of Care Document ---
:1985 Author Organization [facility] Address [address] [place], [place] [id number] Phone Allergies, Adverse Reactions, Alerts Substance Reaction [...] third trimester 35 weeks gestation of - Maternal care for [...] suprvsn of normal - , third trimester 37 weeks gestation of - Endo, nutritional and [...] suprvsn of normal - , third trimester 38 weeks gestation of - Procedures Procedure Date OB Visit No Charge Results Test Name Date and Time Measure Units Reference Range Abnormal Flag Comments Panel Description: STREPTOCOCCUS, GROUP B CULTURE STREPTOCOCCUS, GROUP SEE NOTE STREPTOCOCCUS, GROUP B CULTURE B CULTURE 14:37:00 MICRO NUMBER: [id number] TEST STATUS: FINAL SPECIMEN SOURCE: VAGINAL/ANORECTAL SPECIMEN QUALITY: ADEQUATE RESULT: No group B Streptococcus isolatedREPORT COMMENT:FASTING:UNKNOWNTest performed at [facility] [id number] [place] [address]Qzelsaxs: PATRICIA TAMAYO DO,MPH Advance Directives Directive Yes / No Effective Date File Name Unknown Encounters Encounter Practice Location Reason(s) Diagnoses Date Provider Care Description For Visit Team Members Soha Beltre Encounter for Mar- [place] In Womens suprvsn of 6-201 [facility], normal 7 [address], , third [facility], [place], [id number] Center [id number], weeks gestation Irving Tomlinson [place] of 120, tel:+[phone] [place], [address] [place], [id number] , [place]. tel:[phone] Soha Beltre Endo, Mar- [place] In Womens nutritional and 9-201 [facility], metab diseases 7 700 [address], comp preg, [place], [facility] [id number], suprvsn of [facility] normal 120, tel:[phone] , third [place], [address] [id number] [place], weeks gestation [id number] of , [place]. tel: [phone] Soha Beltre Encounter for Dec-0 [place] In Womens suprn of 6-201 [facility], normal 7 [address], , third [place], [id number] Center [id number], weeks gestation Irving Tomlinson of 120, tel:[phone] [place], [address] [place], [id number] , [place]. tel:[phone] Soha Beltre Nov-2 [place] In Womens 3-201 [facility], 7 700 [address], [place], [place] [id number], , [facility] [place] 120, tel:[phone] [place] [address] [place], [id number] , [place]. tel: [phone] Soha Beltre Endo, Nov-2 [place] In Womens nutritional and 2-201 [facility], metab diseases 7 700 [address], comp preg, [place], [facility] [id number], suprvsn of [facility] normal 120, tel:[phone] , third [place], [address] [id number] [place], weeks gestation [id number] of , [place]. tel: [phone] Soha Beltre Nov-1 [place] In Womens 6-201 [facility], 7 700 [address], [place], Center [id number], , [facility] [place] 120, tel:+[phone] [place] [address] [place], [id number] , [place]. tel:[phone] Soha Beltre Encounter for Nov-0 [place] In Womens suprn of 9-201 [facility], normal 7 [address], , third [place], [id number] Center [id number], weeks gestation Irving Tomlinson of 120, tel:[phone] [place], [address] [place], [id number] , [place]. tel:[phone] Soha Beltre Encounter for Oct-2 [place] In Womens suprvsn of 6-201 [facility], normal 7 700 [address], , third [place], [id number] Center [id number], weeks gestation Irving Tomlinson of 120, tel:+[phone] [place], [address] [place], [id number] , [place]. tel: [phone] Soha Beltre Oct-1 [place] In Womens 0-201 [facility], 7 700 [address], [place], Center [id number], Irving Tomlinson 120, tel:+[phone] [place], [address] [place], [id number] , [place]. tel: [phone] Soha Beltre Endo, Oct-0 [place] In Womens nutritional and 9-201 [facility], metab diseases 7 700 [address], comp preg, [place], second Center [id number], triEncounter for [facility] suprvsn of 120, tel:[phone] normal [place], [address] , [place], second [id number] , [place]. weeks gestation tel:[phone] of [phone] Soha Beltre Encounter for Aug-2 [place] In Womens suprvsn of 8-201 [facility], normal 7 700 [address], , [place], second Center [id number], [id number] [facility] weeks gestation 120, tel:[phone] of [place] [address] [place], [id number] , [place]. tel: [phone] Soha Beltre Maternal care Aug-2 [place] In Womens Ultrasound for excess 8-201 [facility], growth, second 7 700 [address], tri, unspEndo, [place], nutritional and Center , metab diseases [facility] comp preg, 120, tel:[phone] second tri20 [place], [address] weeks gestation [place], of [id number] , [place]. tel: [phone] Soha Beltre Maternal care Aug-1 [place] In Womens for excess 7-201 [facility], growth, second 7 700 [address], tri, unspEndo, [place], nutritional and Center [id number], metab diseases [facility] comp preg, 120, tel:[phone] second tri18 [place], [address] weeks gestation [place], of [id number] , [place]. tel: [phone] [facility] Endo, Jourdan- Sobbing In Womens nutritional and 1-201 [facility], metab diseases 7 700 [address], comp preg, [place], second Center [id number], triEncounter for Drive, suprvsn of Suite tel:[phone] normal 120, [address] , [place], second [place], [id number] [address], weeks gestation [place]. of tel: [phone] [facility] Greg-1 [place] In Womens 5-201 [facility] CINDY, 7 700 [address], [place], Center [id number], , [facility] 120, tel:+[phone] [place] [address] [place], [id number] , [place]. tel: [phone] [facility] Pap Smear Greg-1 [place] In Womens Screening, 4-201 [facility] CINDY, CervixEncounter 7 700 [address], for suprvsn of [place], normal Center [id number], , first [facility] trimester9 weeks 120, tel:+[phone] gestation of [place], [address] [place], [id number] , [place]. tel: [phone] Soha Beltre Greg-1 [place] In Womens 2-201 [facility], 7 700 [address], [place], Center [id number], [facility] 120, tel:+[phone] [place] [address], [id number] , [place]. tel:[phone] Family History Family Member Diagnosis Age At Onset No family history of Pulmonary Embolism Mother Gynecological Problem 27 No family history of Uterine Cancer No family history of Venous Thrombosis No family history of Breast Cancer No family history of Colon Cancer Immunizations Vaccine Date Status Comments Tdap completed Source: Other Provider Payers Payer name Insurance type Covered libertarian ID Authorization(s) [facility] - [id number] Medicaid Social History Type Description Quantity Date Captured Alcohol Use Details No Caffeine Use Details Unknown Tobacco Use Status Unknown Smoking Status Never smoker Vital Signs Date / Height Weight BMI Pulse Blood Temperature Respiratory Body Head BMI Time: Rate Pressure Rate Surface Circumference percentile Area 240.20 38.7 128/86 -2017 lbs 7 mm[Hg] 2:02 kg/m PM eter (2) Chief Complaint And Reason For Visit Unknown Chief Complaint And Reason For Visit Reason For Referral Reason For Referral Unknown Plan Of Care Date Type Action Status Appointment Katy Ayers BOOKED Future Order: Radiology Order Complete OB Ultrasound > 14 Ordered Weeks ([id number]) Date Type Problem Goal Intervention Status Start [...]
--- OUTSIDE RECORDS SUMMARY | 2017-04-23 06:20 | External Medical Summary | Continuity of Care Document ---
:1985 Author Organization [facility] Address [address] [place], [place] [id number] Phone Allergies, Adverse Reactions, Alerts Substance Reaction [...] third trimester 31 weeks gestation of - Maternal care for [...] Description For Visit Team Members Soha Beltre Nov-2 [place] In Womens 3-201 [facility], 7 700 [address], [place], [place], [place] [id number], Dr [facility] [place] 120, tel:[phone], [id number] , [place]. tel: [phone] Soha Beltre Endo, Nov-2 [place] In Womens nutritional and 2-201 [facility], metab diseases 7 700 [address], comp preg, third [place], triEncounter for Center [id number], suprvsn of Irving Tomlinson normal 120, tel:[phone] , third [facility] [address] [id number] [place], weeks gestation [id number] of , [place]. tel: [phone] Soha Beltre Nov-1 [place] In Womens 6-201 [facility], 7 700 [address], [place], [place] [id number], Irving Tomlinson [place] 120, tel:[phone] [place] [address], [id number] , [place]. tel:[phone] Soha Beltre Encounter for Nov-0 [place] In Womens suprvsn of 9-201 [facility], normal 7 700 [address], , third [place], [id number] Center [id number], weeks gestation Irving Tomlinson [place] of 120, tel:[phone] [place], [address] [place], [id number] , [place]. tel:[phone] Soha Beltre Encounter for Oct-2 [place] In Womens suprvsn of 6-201 [facility], normal 7 700 [address], , third [place], [id number] Center [id number], weeks gestation Irving Tomlinson of 120, tel:[phone] [place], [address] [place], [id number] , [place]. tel: [phone] Soha Beltre Oct-1 [place] In Womens 0-201 [facility], 7 700 [address], [place], Center [id number], Irving Tomlinson [place] 120, tel:+[phone] [place], [address] [place], [id number] , [place]. tel: [phone] Soha Beltre Endo, Oct-0 [place] In Womens nutritional and 9-201 [facility], metab diseases 7 700 [address], comp preg, [place], second Center , triEncounter for Dr [facility] suprvsn of 120, tel:[phone] normal [place], [address] , [place], second [id number] , [place]. weeks gestation tel: of [phone] Soha Beltre Encounter for Aug-2 [place] In Womens suprvsn of 8-201 [facility], normal 7 700 [address], , [place], second Center [id number], [id number] Irving Tomlinson weeks gestation 120, tel:+[phone] of [place], [address] [place], [id number] , [place]. tel: [phone] Soha Beltre Maternal care Aug-2 [place] In Womens Ultrasound for excess 8-201 [facility], growth, second 7 700 [address], tri, unspEndo, [place], nutritional and Center , metab diseases Dr [facility] comp preg, 120, tel:[phone] second tri20 [place], [address] weeks gestation [place], of [id number] , [place]. tel: [phone] Soha Beltre Maternal care Aug-1 [place] In Womens for excess 7-201 [facility], growth, second 7 700 [address], tri, unspEndo, [place], nutritional and Center [id number], metab diseases , [facility] comp preg, 120, tel:[phone] second tri18 [place], [address] weeks gestation [place], of [id number] , [place]. tel: [phone] [facility] Endo, Oct- Sobbing In Womens nutritional and 1-201 [facility], metab diseases 7 700 [address], comp preg, [place], second Center [id number], triEncounter for [facility], suprvsn of Suite tel:+[phone] normal 120, [address] , [place], second [place], [id number] [address], weeks gestation [place]. of tel: [phone] [facility] Greg-1 [place] In Womens 5-201 [facility] CINDY, 7 700 [address], [place], Center [id number], , [facility] 120, tel:+[phone] [facility] [address] [place], [id number] , [place]. tel: [phone] [facility] Pap Smear Greg-1 [place] In Womens Screening, 4-201 [facility] CINDY, CervixEncounter 7 700 [address], for suprvsn of [place], normal Center [id number], , first Dr [facility] trimester9 weeks 120, tel:+[phone] gestation of [place], [address] [place], [id number] , [place]. tel: [phone] [facility] Greg-1 [place] In Womens 2-201 [facility] CINDY, 7 700 [address], [place], Center [id number], Dr [facility] 120, tel:+[phone], [id number] , [place]. tel:[phone] Family History Family Member Diagnosis Age At Onset No family history of Pulmonary Embolism Mother Gynecological Problem 27 No family history of Uterine Cancer No family history of Venous Thrombosis No family history of Breast Cancer No family history of Colon Cancer Immunizations Vaccine Date Status Comments Tdap completed Source: Other Provider Payers Payer name Insurance type Covered republican ID Authorization(s) [facility] - [id number] Medicaid Social History Type Description Quantity Date Captured Alcohol Use Details No Caffeine Use Details Unknown Tobacco Use Status Unknown Smoking Status Never smoker Vital Signs Date / Height Weight BMI Pulse Blood Temperature Respiratory Body Head BMI Time: Rate Pressure Rate Surface Circumference percentile Area 36.4 -2017 7 9:08 kg/m AM eter (2) 231.80 37.4 111/78 2017 lbs 1 mm[Hg] 9:18 kg/m AM eter (2) Chief Complaint And Reason For Visit Unknown Chief Complaint And Reason For Visit Reason For Referral Reason For Referral Unknown Plan Of Care Date Type Action Status Appointment Katy Ayers BOOKED Future Order: Radiology Order Complete OB Ultrasound > 14 Ordered Weeks ([id number]) Date Type Problem Goal Intervention Status Start [...]
--- OUTSIDE RECORDS SUMMARY | 2017-04-23 06:20 | External Medical Summary | Continuity of Care Document ---
:1985 Author Organization [facility] Address [address] [place], [place] [id number] Phone Allergies, Adverse Reactions, Alerts Substance Reaction Severity Status No Known Drug Allergies Unknown Active Medications Medication Instructions Dosage Effective Status Comments Dates (start - stop) levothyroxine 75 take 1 tablet by 75 MCG - Active mcg tablet oral route every day fluoxetine 20 mg take 1 capsule by 20 MG - Active capsule oral route every day in the morning Vitamin take 1 tablet by Not Available - Active tablet oral route every day ferrous sulfate 325 take 1 tablet by 325 MG - Active mg (65 mg iron) ORAL route 2 times tablet every day fluoxetine 20 mg take 1 tablet by 20 MG - No Longer tablet oral route every Active day in the morning Problems Condition Effective Dates (start - stop) [...] normal 7 700 [address], , [place], [place], [email or web address] Center [id number], weeks gestation [place] of 120, tel:[phone], [id number] , [place]. tel: [phone] Soha Beltre Nov-2 [place] In Womens 3-201 [facility], 7 700 [address], [place], [place] [id number], [place] 120, tel:[phone], [id number] , [place]. tel:[phone] Soha Beltre Endo, Nov-2 [place] [facility] nutritional and 2-201 [facility], metab diseases 7 700 [address], comp preg, [place], [place], triEncounter for [place] [id number], suprvsn of [place] Tom[place] normal 120, tel:[phone] , third [place] [address] [email or web address] [place], weeks gestation [id number] of , [place]. tel: [phone] Soha Beltre Nov-1 [place] In [facility]omens 6-201 [facility], 7 700 [address], [place], Center [id number], [facility] 120, tel:[phone] [address], [id number] , [place]. tel: [phone] Soha Beltre Nov-1 [place] In [facility]omens 5-201 [facility], 7 700 [address], [place], Center [id number], [facility] 120, tel:[phone] [address], [id number] , [place]. tel: [phone] Soha Beltre Encounter for Nov-0 [place] [facility] suprvsn of 9-201 [facility], normal 7 700 [address], , third [place], [email or web address] Center [id number], weeks gestation [place] of 120, tel:[phone] [address], [id number] , [place]. tel: [phone] Soha Beltre Encounter for Oct-2 [place] In [facility]om[facility] suprvsn of 6-201 [facility], normal 7 700 [address], , third [place], [email or web address] Center [id number], weeks gestation [facility] of 120, tel:[phone], [id number] , [place]. tel: [phone] Soha Beltre Oct-1 [place] In [facility]omens 0-201 [facility], 7 700 [address], [place], Center [id number], [place] 120, tel:[phone] [place] [address], [id number] , [place]. tel: [phone] Soha Beltre Endo, Oct-0 [place] In [facility] nutritional and 9-201 [facility], metab diseases 7 700 [address], comp preg, [place], second Center [id number], triEncounter for [place] suprvsn of 120, tel:[phone] ximena [place], [address] , [place], second [address] [place] [address] [email or web address] , [place]. weeks gestation tel:[phone] Associates [facility] Encounter for Aug-2 [place] In [facility]om[facility] suprvsn of 8-201 [facility], normal 7 700 [address], , [place], second Center [id number], [email or web address] , [place] weeks gestation 120, tel:[phone] of [place], [address] [place], [id number] , [place]. tel: [phone] [facility] Maternal care Aug-2 [place] In [facility] Ultrasound for excess 8-201 [facility], growth, second 7 700 [address], tri, unspEndo, [place], nutritional and Center [id number], metab diseases , [facility] comp preg, 120, tel:[phone] second tri20 [place], [address] weeks gestation [place], of [id number] , [place]. tel: [phone] [facility] Maternal care Aug- [place] In Womens for excess 7-201 [facility], growth, second 7 700 [address], tri, unspEndo, [place], nutritional and Center [id number], metab diseases , [facility] comp preg, 120, tel:+21 second tri18 [place], [address] weeks gestation [place], of [id number] , [place]. tel: [phone] [facility] [place] Endo, Oct- [place] In Womens nutritional and 1-201 [facility], metab diseases 7 700 [address], comp preg, [place], [facility] Center [id number], triEncounter for [facility], suprvsn of Suite tel:[phone] normal 120, [phone] , [place], second [place], [email or web address], weeks gestation [place]. of tel: [phone] [facility] Sep- [place] In Womens 5-201 [facility], 7 700 [address], [place], Center [id number], , [place] 120, tel:[phone] [place], [address] [place], [id number] , [place]. tel: [phone] [facility] Pap Smear Greg- [place] [facility] Screening, 4-201 [facility], CervixEncounter 7 [address], for suprvsn of [place], normal Center [id number], , first [place] trimester9 weeks 120, tel:[phone] gestation of [place] [address] [place], [id number] , [place]. tel: [phone] Soha Beltre Sep- [place] In Womens 2-201 [facility], 7 700 [address], [place], Center [id number], [place] 120, tel:[phone] [place] [address] [place], [id number] , [place]. tel: [phone] Family History Family Member Diagnosis Age At Onset No family history of Pulmonary Embolism Mother Gynecological Problem 27 No family history of Uterine Cancer No family history of Venous Thrombosis No family history of Breast Cancer No family history of Colon Cancer Immunizations Vaccine Date Status Comments Tdap completed Source: Other Provider Payers Payer name Insurance type Covered constitution party ID Authorization(s) [facility] - [id number] Medicaid Social History Type Description Quantity Date [...] Complete OB Ultrasound > 14 Ordered Weeks (14606) Date Type Problem Goal Intervention Status Start [...]
--- OUTSIDE RECORDS SUMMARY | 2017-04-23 06:20 | External Medical Summary | Continuity of Care Document ---
:1985 Author Organization [facility] Address [address] [place], [place] [id number] Phone Allergies, Adverse Reactions, Alerts Substance Reaction Severity Status No Known Drug Allergies Unknown Active Medications Medication Instructions Dosage Effective Dates Status Comments (start - stop) fluoxetine 20 mg take 1 tablet by 20 MG - Active tablet oral route every day in the morning levothyroxine 50 mcg take 1 tablet by [...] third trimester 29 weeks gestation of - Maternal care for [...] Description For Visit Team Members Soha Beltre Nov-1 [place] In [facility] 5-201 [facility], 7 700 [address], [place], [place], Page [id number], [facility] 120, tel:[phone], [id number] , [place]. tel: [phone] Soha Beltre Encounter for Nov-0 [place] In Womens suprvsn of 9-201 [facility], normal 7 700 [address], , third [place], [email or web address] Center [id number], weeks gestation [facility] of 120, tel:[phone], [id number] , [place]. tel: [phone] Soha Beltre Encounter for Oct-2 [place] In Womens suprvsn of 6-201 [facility], normal 7 700 [address], , third [place], [email or web address] Center [id number], weeks gestation [place] of 120, tel:[phone] [place] [address], [id number] , [place]. tel:[phone] Soha Beltre Oct-1 [place] In [facility]omens 0-201 [facility], 7 700 [address], [place], Center [id number], [facility] 120, tel:[phone] [place] [address] [place], [id number] , [place]. tel:[phone] Soha Beltre Endo, Oct-0 [place] [facility] nutritional and 9-201 [facility], metab diseases 7 700 [address], comp preg, [place], second Center , [address] [facility] suprvsn of 120, tel:+[phone] normal [place], [address] , [place], second [id number] , [place]. weeks gestation tel:[phone] of [phone] [facility] [place] Encounter for Aug-2 [place] In Womens suprvsn of 8-201 [facility], normal 7 700 [address], , [place], second Center [id number], [email or web address] [facility] weeks gestation 120, tel:+21 of [place], [address] [place], [id number] , [place]. tel: [phone] [facility] [place] Maternal care Aug-2 [place] In [facility]om[facility] Ultrasound for excess 8-201 [facility], growth, second 7 700 [address], tri, unspEndo, [place], nutritional and Center [id number], metab diseases [facility] comp preg, 120, tel:+21 second tri20 [place], [address] weeks gestation [place], of [id number] , [place]. tel: [phone] [facility] Maternal care Aug-1 [place] In Womens for excess 7-201 [facility], growth, second 7 700 [address], tri, unspEndo, [place], nutritional and Center [id number], metab diseases [place] comp preg, 120, tel:+21 second tri18 [place], [address] weeks gestation [place], of [id number] , [place]. tel: [phone] [facility] Endo, Jourdan-2 [place] In Womens nutritional and 1-201 [facility], metab diseases 7 700 [address], comp preg, [place], [facility] Center [id number], Antwon Calderon, suprvsn of Suite tel:[phone] normal 120, [address] , [place], second [place], [id number] [address], weeks gestation [place]. of tel: [phone] [facility] Greg-1 [place] In Womens 5-201 [facility], 7 700 [address], [place], Center [id number], Dr Irvign [place] 120, tel:[phone], [id number] , [place]. tel: [phone] [facility] Pap Smear Greg- [place] In Womens Screening, 4-201 [facility], CervixEncounter 7 700 [address], for suprvsn of [place], normal Center [id number], , first [place] trimester9 weeks 120, tel:[phone] gestation of [place] [facility] [place], [id number] , [place]. tel: [phone] Soha Beltre Greg- [place] In Womens 2-201 [facility] ([facility], 7 700 [address], [place], Center [id number], [facility] 120, tel:[phone], [id number] , [place]. tel: [phone] Family History Family Member Diagnosis Age At Onset No family history of Pulmonary Embolism Mother Gynecological Problem 27 No family history of Uterine Cancer No family history of Venous Thrombosis No family history of Breast Cancer No family history of Colon Cancer Immunizations Vaccine Date Status Comments Tdap completed Source: Other Provider Payers Payer name Insurance type Covered republican ID Authorization(s) [facility] - [id number] Medicaid Social History Type Description Quantity Date Captured Alcohol Use Details No Caffeine Use Details Unknown Tobacco Use Status Unknown Smoking Status Never smoker Vital Signs Date / Height Weight BMI Pulse Blood Temperature Respiratory Body Head BMI Time: Rate Pressure Rate Surface Circumference percentile Area 226.00 36.4 122/82 -2017 lbs 7 mm[Hg] 9:24 kg/m AM eter (2) Chief Complaint And Reason For Visit Unknown Chief Complaint And Reason For Visit Reason For Referral Reason For Referral Unknown Plan Of Care Date Type Action Status Appointment Katy Ayers BOOKED Future Order: Radiology Order Complete OB Ultrasound > 14 Ordered Weeks (11177) Date Type Problem Goal Intervention Status Start [...]
--- OUTSIDE RECORDS SUMMARY | 2017-04-23 06:20 | External Medical Summary | Continuity of Care Document ---
:1985 Author Organization [facility] Allergies Active Description Code Type Severity Reaction Onset Reported/ Identified Relationship Clinical to Patient Status Yes No Known 45125 3 N/A N/A Drug 0 Allergies Medications Medication Packaging Start Date Stop Date Route Dosage Sig Tablet 10/01/2016 LEVOTHYROXINE 7 take 1 SODIUM tablet by oral route every day Tablet 10/02/2016 VITAMINS take 1 tablet by oral route every day Tablet 12/03/2016 LEVOTHYROXINE 7 take 1 SODIUM tablet by oral route every day Tablet 02/27/2017 FLUOXETINE HCL 7 take 1 tablet by oral route every day in the morning Capsule 02/28/2017 FLUOXETINE HCL take 1 capsule by oral route every day in the morning Tablet 03/11/2017 LEVOTHYROXINE take 1 SODIUM tablet by oral route every day Problems Date Dx Coded Attending Type Code Diagnosis Diagnosed By 12/10/2016 Lilly [place] O36.62x0 Maternal care for excess growth, second tri, unsp 12/10/2016 Lilly [place] O99.282 Endo, nutritional and metab diseases comp preg, second tri 12/10/2016 Lilly [place] Z3A.20 20 weeks gestation of Procedures Code Description [place] [address] Ultrasnd 12/10/2016 exam of preg uterus, compl Results There is no data. Encounters ACCT No. Visit Discharge Status Pt. Type Provider Facility Loc./Unit Complaint Date/Time [id number] 04/09/2017 04/09/2017 [facility] Outpatient [place], 14:11:00 23:59:59 Lilly Castillo [id number] 04/09/2017 04/09/2017 [facility] Outpatient [place], 10:15:00 23:59:59 Lilly Castillo [id number] 04/02/2017 04/02/2017 [facility] Outpatient [place], 11:00:00 23:59:59 Lilly Castillo [id number] 03/20/2017 03/20/2017 [facility] Outpatient [place], 13:50:00 23:59:59 Lilly Castillo [id number] 03/07/2017 03/07/2017 [facility] Outpatient [place], 15:50:00 23:59:59 Lilly Castillo [id number] 03/06/2017 03/06/2017 [facility] Outpatient [place], 09:15:00 23:59:59 Lilly Castillo [id number] 02/28/2017 02/28/2017 [facility] Outpatient [place], 11:53:00 23:59:59 Lilly Castillo [id number] 02/27/2017 02/27/2017 [facility] Outpatient [place], 14:25:00 23:59:59 Lilly Castillo [id number] 02/21/2017 02/21/2017 [facility] Outpatient [place], 09:10:00 23:59:59 Lilly Castillo [id number] 02/07/2017 02/07/2017 [facility] Outpatient [place], 09:20:00 23:59:59 Lilly Castillo [id number] 02/05/2017 02/05/2017 [facility] Outpatient [place], 11:39:00 23:59:59 Lilly Castillo [id number] 01/22/2017 01/22/2017 [facility] Outpatient [place], 09:31:00 23:59:59 Lilly Castillo [id number] 01/21/2017 01/21/2017 [facility] Outpatient [place], 13:15:00 23:59:59 Lilly Castillo [id number] 12/10/2016 12/10/2016 [facility] Outpatient [place], 13:15:00 23:59:59 Lilly Castillo [id number] 12/10/2016 12/10/2016 [facility] Outpatient [place], 12:45:00 23:59:59 Lilly Castillo [id number] 11/29/2016 11/29/2016 [facility] Outpatient [place], 11:00:00 23:59:59 Lilly Castillo [id number] 11/05/2016 11/05/2016 [facility] Outpatient [place], 10:56:00 23:59:59 Siva Caldera [id number] 11/02/2016 11/02/2016 [facility] Out[facility] [place], 14:00:00 23:59:59 Siva Caldera [id number] 09/27/2016 09/27/2016 [facility] Outpatient [place], 14:33:00 23:59:59 Lilly Castillo [id number] 09/26/2016 09/26/2016 [facility] Outpatient [place], 14:00:00 23:59:59 Lilly Castillo [id number] 09/24/2016 09/24/2016 [facility] Out[facility] [place], 11:46:00 23:59:59 Lilly Castillo [id number] 04/16/2017 Document 15:40:00 Registration
[2017-04-23] MEDS: LR 1,000 ML IV PRN ×2 (06:55→13:45)
[2017-04-23 06:57] VITALS: BMI 38.4
[2017-04-23] MEDS ORDERED: ONDANSETRON 4 MG/2 ML INJECTION IVP PRN ×2 (09:18→11:58)
[2017-04-23] MEDS ORDERED: ROPIVACAINE 1% 10MG/ML INJ 200 MG, SUFentanil 50 MCG in NS 100 ML EPI PRN (09:18)
[2017-04-23] MEDS ORDERED: NALOXONE 0.4 MG/ML INJECTION IVP PRN (09:18)
[2017-04-23] MEDS ORDERED: DiphenhydrAMINE 50 MG/ML INJECTION IVP PRN (09:18)
--- NOTE | 2017-04-23 09:18 | Anesthesia Preoperative Report ---
Anesthesia Epidural/Spinal Rec - Date and Time Date: 04/23/17 Preoperative Diagnosis: term induction Labor Procedure: Labor Epidural Plan: Epidural - Vital Signs Vital Signs: Temperature 98.0 F 04/23/17 07:23 Pulse Rate 106 H 04/23/17 07:23 Respiratory Rate 20 04/23/17 07:23 Blood Pressure 154/72 H 04/23/17 07:23 Pulse Oximetry 100 04/23/17 07:23 /Para: P:3 - Medictaions & Allergies Inpatient Medications: Current Medications Acetaminophen (Tylenol) 500 - 1,000 mg PO Q4H PRN PRN Reason: Pain Al Hydroxide/Mg Hydroxide (Maalox Plus) 30 ml PO Q3H PRN PRN Reason: Indigestion Calcium Carbonate (Tums) 500 - 1,000 mg PO Q2H PRN PRN Reason: Indigestion Carboprost Tromethamine (Hemabate) 250 mcg IM O PRN PRN Reason: .Downtime Dextrose/Lactated Ringer's (Dextrose 5%-Lactated Ringers) 1,000 mls @ 125 mls/ hr IV .Q8H PRN PRN Reason: Labor Last Admin: 04/23/17 06:55 Dose: 125 mls/hr Lactated Ringer's (Lactated Ringers) 1,000 mls @ 999 mls/hr IV .Q1H1M PRN Last Admin: 04/23/17 06:55 Dose: 999 mls/hr Oxytocin (Pitocin Drip) 30 unit in 500 mls @ 2 mls/hr IV .Q24H PRN; Protocol PRN Reason: Induction/Augmentation Last Admin: 04/23/17 06:52 Dose: 2 mls/hr Lidocaine HCl (Xylocaine-Mpf 1% Vial) 0.2 mg ID O PRN PRN Reason: IV Start Methylergonovine Maleate (Methergine) 0.2 mg IM O PRN Misoprostol (Cytotec) 800 mcg NM ONCE PRN Allergies/Adverse Reactions: Allergies Allergy/AdvReac Type Severity Reaction Status Date / Time No Known Allergies Allergy Verified 04/19/17 15:05 - Home Medications Home Medications: Home Medications Medication Instructions Recorded Confirmed Type Iron DAILY 04/02/17 History Levothyroxine Tab 04/02/17 History Vitamins 04/02/17 History Prozac (fluoxetine) 20 mg capsule 20 mg PO DAILY 04/19/17 History - Medical History Respiratory: DENIES: Asthma, Bronchitis, Chronic Obstructive Pulmonary Disease (COPD), Dyspnea, Orthopnea, Pulmonary Embolism, Pneumonia, Upper Respiratory Infection, Pulmonary Edema, Sleep Apnea, Tuberculosis, Other Cardiovascular: DENIES: Abnormal EKG, Angina, Arrhythmia, Congestive Heart Failure, Coronary Artery Disease, Heart Murmur, Hypertension, Hypotension, High Cholesterol, Myocardial Infarction, Rheumatic Fever, Valvular Heart Disease, Other Gastrointestional: DENIES: Obstructive Bowel, Hepatitis, Cirrhosis, Nausea or Vomiting Present, Gastroesophageal Reflux Disease, Gastrointestinal Bleeding, Hiatal Hernia, Ulcer , Morbid Obesity, Other Neuro/Musculoskeletal: Reports: Depression Denies: HX.MS.OSAR, Back Problems, Cerebrovascular Accident, Headaches, Loss of Consciousness, Muscle Weakness, Neuromuscular Disorder, Paralysis, Paresthesia, Syncope, Seizures, Other Renal/Endocrine: Reports: Thyroid Disease (take meds) Other History: Reports: Now DENIES: Anesthesia Reactions, Blood Transfusions, Chemotherapy, Cancer, Hemophilia, Malignant Hyperthermia, Sickle Cell Disease, Other - Surgical History GI Surgery/Treatments: Reports: Cholecystectomy Reproductive Surgery/Treatment: DENIES: Section Anesthesia Reactions: None Hx Family Anesthesia Reaction: No History of Motion Sickness: No - Social History Smoking Status: Never smoker Second Hand Exposure: No Substance Use Type: does not use Alcohol Intake Frequency: does not drink - Pertinent Findings Lab Data: CBC and BMP 04/23/17 06:41 - Physical Exam Respiratory Exam: lungs clear, bilateral breath sounds equal Cardiovascular Exam: regular rate and rhythm, no murmur - Airway Assessment Mallampati Score: II TMD: 3 Fingerbreadths Neck Extension: good Overall Assessment: may be difficult mask vent, may be difficult intubation - ASA ASA Score: 2 - Discussion Discussion: Discussed risks/options/alternatives of anesthesia and questions answered. Patient consents. Nursing pain assessment noted. Anesthesia Discussion: spouse Attestation Statement: Prior to the delivery of any anesthetic medication, I examined the patient, developed the plan, obtained the patient's consent and discussed the risk and benefits of the procedure with the patient/guardian.
[2017-04-23] MEDS ORDERED: DiphenhydrAMINE 25 MG CAPSULE PO PRN (11:58)
[2017-04-23] MEDS ORDERED: VARICELLA LIVE VACCINE 0.5 ML VIAL SQ ONE (11:58)
[2017-04-23] MEDS ORDERED: HYDROCORTISONE 2.5% CREAM 30gm RECTALLY PRN (11:58)
[2017-04-23] MEDS ORDERED: OXYTOCIN DRIP 30 UNIT/500 ML ML IV SCH (12:00)
[2017-04-23] MEDS: LR 1,000 ML IV SCH (13:43)
[2017-04-23] MEDS ORDERED: METHYLERGONOVINE 0.2 MG TABLET PO ONE ×2 (13:45→17:45)
--- NOTE | 2017-04-23 17:40 | Labor and Delivery Note ---
DATE OF DELIVERY: 04/23/2017 DELIVERY NOTE Katy is a 31-year-old, 4, para 3, at 40 weeks 2 days gestational age who was brought in for a Pitocin induction this morning. Her membranes were ruptured artificially returning clear fluids. She received an epidural. She progressed nicely throughout labor and only had to push with one contraction. She had a spontaneous vaginal delivery in the JOHANA position of a viable female infant, Apgars 8/9, weight 3260 g, name "Catarino." The baby was vigorous at delivery, so she was placed on mom's abdomen and the cord clamping was delayed for more than 2 minutes. The placenta delivered spontaneously. She had mild uterine atony that would initially firm up with massage and then have mild atony again. We gave her a dose of Methergine IM and TXA IV. Total blood loss was 500 ml. Her bleeding slowed down substantially. She is scheduled tomorrow for an umbilical hernia repair and tubal ligation. PATRICK
[2017-04-23] MEDS: IBUPROFEN 800 MG TABLET PO PRN (18:21)
[2017-04-23] MEDS: HYDROCODONE/APAP 5mg/325mg TABLET PO PRN (23:58)
[2017-04-24] MEDS ORDERED: MORPHINE SULFATE 2mg INJECTION IVP PRN (00:01)
[2017-04-24] MEDS: LR 1,000 ML IV SCH ×5 (00:11→20:18)
[2017-04-24] MEDS ORDERED: CEFAZOLIN 1 G INJECTION IVP ONE (08:24)
--- NOTE | 2017-04-24 08:28 | Anesthesia Preoperative Report ---
Anesthesia Preoperative Record - Date and Time Date: 04/24/17 Preoperative Diagnosis: incisional hernia, pt request sterilization Proposed Procedure: pptl, open incision hernia repair with possible mesh NPO Since Date: 04/23/17 NPO Since Time: 23:00 Allergies/Adverse Reactions: Allergies Allergy/AdvReac Type Severity Reaction Status Date / Time No Known Allergies Allergy Verified 04/19/17 15:05 - Vital Signs Vital Signs: Temperature 98.4 F 04/24/17 07:52 Pulse Rate 98 04/24/17 07:52 Respiratory Rate 18 04/24/17 07:52 Blood Pressure 124/57 04/24/17 07:52 Pulse Oximetry 98 04/24/17 07:52 Height and Weight: Height 1.7 m Weight 111.36 kg Body Mass Index 38.4 - Medications Inpatient Medications: Current Medications Acetaminophen (Tylenol) 500 - 1,000 mg PO Q4H PRN PRN Reason: Pain Hydrocodone Bitart/Acetaminophen ([place] 5/325) 1 - 2 tab PO Q4H PRN PRN Reason: Pain Last Admin: 04/23/17 23:58 Dose: 2 tab Al Hydroxide/Mg Hydroxide (Maalox Plus) 30 ml PO Q3H PRN PRN Reason: Indigestion Calcium Carbonate (Tums) 500 - 1,000 mg PO Q2H PRN PRN Reason: Indigestion Carboprost Tromethamine (Hemabate) 250 mcg IM O PRN PRN Reason: .Downtime Diphenhydramine HCl (Benadryl) 25 - 50 mg IVP Q3H PRN PRN Reason: Itching Diphenhydramine HCl (Benadryl) 25 - 50 mg PO Q6H PRN PRN Reason: Itching Docusate Calcium (Surfak) 240 mg PO DAILY VICTOR M Hydrocortisone (Anusol-Hc 2.5% Cream) 1 applic RECTALLY PRN PRN PRN Reason: Hemorrhoids Ropivacaine 200 mg/ Sufentanil Citrate 50 mcg/ Sodium Chloride 121 mls @ 0 mls/ hr EPI PRN PRN; As Directed PRN Reason: Protocol Lactated Ringer's (Lactated Ringers) 1,000 mls @ 125 mls/hr IV .Q8H VICTOR M Last Infusion: 04/24/17 07:29 Dose: Infused Lactated Ringer's (Lactated Ringers) 1,000 mls @ 50 mls/hr IV .Q20H VICTOR M Ibuprofen (Motrin) 800 mg PO Q8H PRN PRN Reason: Pain Last Admin: 04/23/17 18:21 Dose: 800 mg Magnesium Hydroxide (Mom) 30 ml PO DAILY PRN PRN Reason: Constipation Methylergonovine Maleate (Methergine) 0.2 mg IM O PRN Last Admin: 04/23/17 11:44 Dose: 0.2 mg Misoprostol (Cytotec) 800 mcg SD ONCE PRN Morphine Sulfate (Morphine Sulfate Inj) 2 - 4 mg IVP Q2H PRN PRN Reason: Pain Naloxone HCl (Narcan) 0.1 mg IVP Q2M PRN PRN Reason: Respiratory distress Ondansetron HCl (Zofran) 4 mg IVP Q6H PRN PRN Reason: Nausea &/or vomiting Ondansetron HCl (Zofran) 4 mg IVP Q4H PRN PRN Reason: Nausea &/or vomiting Home Medications: Home Medications Medication Instructions Recorded Confirmed Type Iron DAILY 04/02/17 History Levothyroxine Tab 04/02/17 History Vitamins 04/02/17 History Prozac (fluoxetine) 20 mg capsule 20 mg PO DAILY 04/19/17 History - Medical History Respiratory: DENIES: Asthma, Bronchitis, Chronic Obstructive Pulmonary Disease (COPD), Dyspnea, Orthopnea, Pulmonary Embolism, Pneumonia, Upper Respiratory Infection, Pulmonary Edema, Sleep Apnea, Tuberculosis, Other Cardiovascular: DENIES: Abnormal EKG, Angina, Arrhythmia, Congestive Heart Failure, Coronary Artery Disease, Heart Murmur, Hypertension, Hypotension, High Cholesterol, Myocardial Infarction, Rheumatic Fever, Valvular Heart Disease, Other Gastrointestional: DENIES: Obstructive Bowel, Hepatitis, Cirrhosis, Nausea or Vomiting Present, Gastroesophageal Reflux Disease, Gastrointestinal Bleeding, Hiatal Hernia, Ulcer , Morbid Obesity, Other Neuro/Musculoskeletal: Reports: Depression (anxiety ) Denies: HX.MS.OSAR, Back Problems, Cerebrovascular Accident, Headaches, Loss of Consciousness, Muscle Weakness, Neuromuscular Disorder, Paralysis, Paresthesia, Syncope, Seizures, Other Renal/Endocrine: Reports: Thyroid Disease (take meds) Other History: DENIES: Anesthesia Reactions, Blood Transfusions, Chemotherapy, Cancer, Hemophilia, Malignant Hyperthermia, Sickle Cell Disease, Other - Surgical History GI Surgery/Treatments: Reports: Cholecystectomy Reproductive Surgery/Treatment: DENIES: Section Anesthesia Reactions: None Hx Family Anesthesia Reaction: No History of Motion Sickness: No - Social History Smoking Status: Never smoker Second Hand Exposure: No Substance Use Type: does not use Alcohol Intake Frequency: does not drink - Pertinent Findings Laboratory: CBC and BMP 04/24/17 04:33 EKG: Sinus Rhythm - Physical Exam Respiratory Exam: Present: lungs clear, bilateral breath sounds equal Cardiovascular Exam: Present: regular rate and rhythm, no murmur - Airway Assessment Mallampati Score: II TMD: 3 Fingerbreadths Neck Extension: good Overall Assessment: may be difficult mask vent, may be difficult intubation - ASA ASA Score: 2 - Plan Regional/Trunk Block: Spinal - Discussion Discussion: Discussed risks/options/alternatives of anesthesia and questions answered. Patient consents. Nursing pain assessment noted. Present for Discussion: spouse Attestation Statement: Prior to the delivery of any anesthetic medication, I examined the patient, developed the plan, obtained the patient's consent and discussed the risk and benefits of the procedure with the patient/guardian. - Additional Information Seen by Anesthesia: Yes
[2017-04-24] MEDS ORDERED: FentaNYL 100 MCG/2 ML INJECTION ONE (08:39)
[2017-04-24] MEDS ORDERED: MIDAZOLAM 2mg/2ml INJECTION ONE ×2 (08:39→08:58)
--- NOTE | 2017-04-24 08:40 | OB/GYN Progress Note ---
OB-PP Progress Note - General PPD1 Maternal Group B Strep: Negative Maternal blood type: A+ Maternal Rubella Status: Immune - Subjective Date: 04/24/17 Lochia: Minimal Pain: controlled Voiding: voiding Subjective Comments: She still desires a PPTL. - Objective Vital Signs: Last Vital Signs Temp 98.4 F 04/24/17 07:52 Pulse 98 04/24/17 07:52 Resp 18 04/24/17 07:52 BP 124/57 04/24/17 07:52 Pulse Ox 98 04/24/17 07:52 Urine Output: good General: alert and oriented Abdomen: fundus firm, non-tender Extremities: non-tender Laboratory: Laboratory Results - last 24 hr 04/24/17 04:33 WBC 12.9 H RBC 3.49 L Hgb 8.4 L D Hct 28.2 L D MCV 80.8 MCH 24.1 L MCHC 29.8 L RDW Std Deviation 50.7 H Plt Count 286 MPV 10.2 - Assessment Assessment: - Plan Plan: routine care, other (Desires PPTL. She understands this is a permanent procedure, but there is also the risk of failure and ectopic, which can be life threatening. Questions answered. )
[2017-04-24] MEDS ORDERED: BUPIVACAINE 0.25% (2.5mg/ml) PF 30ml INJECTION SQ ONE (09:30)
--- NOTE | 2017-04-24 09:31 | OB/GYN Procedure Note ---
LOOP MACHINE OPERATOR Operative Note Date of Operation: 04/24/17 Preoperative Diagnosis: Sterilization, Other (Umbilical hernia) Postoperative Diagnosis: Same as Preoperative LOOP MACHINE OPERATOR Procedure: Tubal Ligation (, Modified [facility]) Comments: Umbilical hernia repair by Dr. Roque Surgeon: Lilly Morataya MD Anesthesia Provider: Froilan Ross CRNA Anesthesia Type: Spinal Complications: None Estimated Blood Loss:: 5
--- NOTE | 2017-04-24 10:21 | General Surgery Procedure Note ---
Date of Procedure: 04/24/17 Surgeon: Mya Anesthesia: Regional Block ASA Score: 2 Postoperative Diagnosis: 1.5 cm invisional ventral hernia at the umbilical position. Procedure: incisional ventral hernia repair with mesh
--- NOTE | 2017-04-24 11:04 | Anesthesia Postoperative Note ---
- Date and Time Date: 04/24/17 Time: 10:30 - Status Patient Participated in Evaluation: Patient Participated in Person Vital Signs: Temperature 98.1 F 04/24/17 10:57 Pulse Rate 77 04/24/17 10:57 Respiratory Rate 18 04/24/17 10:57 Blood Pressure 117/78 04/24/17 10:57 Pulse Oximetry 99 04/24/17 10:57 Respiratory Function: Airway Patent Cardiovascular Function: Regular Pulse EKG: Sinus Rhythm Mental Status: Alert and Oriented Pain Intensity: 0 Hydration: IV Infusing Complications During Recover: None Apparent - Follow-Up Instructions Instructions: Per Surgeon
[2017-04-24] MEDS: DOCUSATE CALCIUM 240 MG CAPSULE PO SCH (11:19)
[2017-04-24] MEDS: HYDROCODONE/APAP 5mg/325mg TABLET PO PRN ×2 (13:04→18:51)
[2017-04-24 14:50] VITALS: RESP 16
[2017-04-24] MEDS: IBUPROFEN 800 MG TABLET PO PRN (16:22)
--- NOTE | 2017-04-24 17:22 | OB/GYN Progress Note ---
OB-PP Progress Note - General POD:: Post Op Check Maternal Group B Strep: Negative Maternal blood type: A+ Maternal Rubella Status: Immune General: She's doing well and desires dismissal. - Subjective Date: 04/24/17 Lochia: Minimal Pain: controlled Voiding: voiding - Objective Vital Signs: Last Vital Signs Temp 97.9 F 04/24/17 14:42 Pulse 92 04/24/17 14:42 Resp 16 04/24/17 14:42 BP 124/75 04/24/17 14:42 Pulse Ox 93 04/24/17 14:42 Abdomen: soft, non-distended Incision: clean, dry, intact Laboratory: Laboratory Results - last 24 hr 04/24/17 04:33 WBC 12.9 H RBC 3.49 L Hgb 8.4 L D Hct 28.2 L D MCV 80.8 MCH 24.1 L MCHC 29.8 L RDW Std Deviation 50.7 H Plt Count 286 MPV 10.2 - Assessment Assessment: , Tubal Ligation (& Ventral hernia repair) - Plan Plan: routine care, discharge home, continue PNV
--- NOTE | 2017-04-24 20:55 | Operative Note ---
DATE OF SURGERY 04/24/2017 PREOPERATIVE DIAGNOSES 1. Desires permanent sterilization. 2. Status post spontaneous vaginal delivery. 3. Umbilical hernia. POSTOPERATIVE DIAGNOSES 1. Desires permanent sterilization. 2. Status post spontaneous vaginal delivery. 3. Umbilical hernia. PROCEDURE 1. tubal ligation via modified [facility] method. 2. Umbilical hernia repair which will be dictated elsewhere by Dr. Roque. SURGEON Dr. Lilly Morataya FAMILY MEDICINE PHYSICIAN ASSISTANT Dr. Roque ANESTHESIA Spinal by Froilan Ross CRNA COMPLICATIONS None. EBL 5 mL from my portion. FINDINGS Fundus firm just below the level of the umbilicus. Normal-appearing tubes and right ovary. The left ovary was not visualized. PROCEDURE The patient was taken to the operating room where anesthesia was obtained. She voided just prior to coming back to the operating room so her bladder was not drained. She was prepared and draped in the normal sterile fashion. Dr. Roque started the hernia dissection and entered the abdomen for me. The patient was placed in a small amount of Trendelenburg and the bed was tilted to the patient's right. A wet sponge attached to a Christy was used to retract the omentum. [place] retractors were used on the abdominal wall to visualize the left fallopian tube. This was grasped with a Estrella and carried out to the fimbria. An avascular segment was ligated with chromic. Each end of the segment was ligated also with chromic. The tube segment was excised with good hemostasis noted. Local was injected into the remaining tube. The tube was allowed to fall freely back into the abdomen. The patient was tilted to her left and this was all repeated on the patient's right fallopian tube. This also had good hemostasis. The patient was flattened out and the case was returned to Dr. Roque. The patient tolerated the procedure well. PATRICK
[2017-04-25] MEDS: IBUPROFEN 800 MG TABLET PO PRN ×2 (00:44→09:16)
[2017-04-25] MEDS: HYDROCODONE/APAP 5mg/325mg TABLET PO PRN (00:44)
[2017-04-25] MEDS: LR 1,000 ML IV SCH (04:51)
[2017-04-25 06:45] VITALS: PULSE 95
--- NOTE | 2017-04-25 07:34 | Operative Note ---
DATE OF OPERATION 04/24/2017 SURGEON Yuri Roque MD PREOPERATIVE DIAGNOSIS Incisional ventral hernia at the umbilical position. POSTOPERATIVE DIAGNOSIS 1.5 cm incisional ventral hernia at the umbilical position. PROCEDURE Open incisional ventral hernia repair with mesh. ANESTHESIA Spinal ASA CLASS 2 INDICATIONS The patient is a 31-year-old female who delivered her daughter yesterday. She was seen in the clinic during and was noted to have an incisional hernia at the umbilical position. She had desired tubal ligation which was planned with Dr. Morataya. It was felt that her hernia should be repaired during the same setting. FINDINGS The incisional hernia was at the area of the umbilicus. The defect was 1.5 cm in diameter. DESCRIPTION OF PROCEDURE After informed consent was obtained the patient was taken to the operating room and placed in the supine position after spinal anesthesia was administered. The patient's abdomen was prepped and draped in the usual sterile fashion. The patient's infraumbilical incision was opened with extensions to both sides to gain adequate exposure. Electrocautery was used to dissect down through the subcutaneous tissue to the base of the umbilical stalk. The umbilical stalk was divided using cautery and some of the fat herniated through the fascial defect was also divided with cautery. When the umbilical stalk was divided, the hernia was exposed and measurements were taken. The hernia defect was too small to complete the tubal ligation, so the fascia was divided on each side of the hernia defect to allow adequate exposure for Dr. Morataya's portion of the procedure. See her separate procedure note. Once Dr. Morataya was completed with her portion of the procedure, the hernia and the extensions of the fascial incision were closed. An underlying mesh was placed with a medium Ventralex ST hernia patch. The patch was secured to the fascia in four quadrants with O Prolene sutures. The fascia was closed with a running O Prolene suture that incorporated the superficial aspect of the mesh. The strap of the mesh was divided with scissors and all the sutures were secured. Additional local was injected at the fascial level. The base of the umbilicus was tacked to the fascia with a [id number] stitch of 3-0 Vicryl. The dermis was reapproximated with buried interrupted 3-0 Vicryl sutures and the skin was closed with a running subcuticular 4-0 Monocryl stitch. Dermabond was placed as a dressing. The patient tolerated the procedure well. PATRICK
[2017-04-25] MEDS ORDERED: FLUoxetine 20 MG CAPSULE PO SCH (09:00)
[2017-04-25] MEDS: DOCUSATE CALCIUM 240 MG CAPSULE PO SCH (09:16)
[2017-04-25 13:15] VITALS: BP 115/80; TEMP 98.3; O2SAT 93
== END 2017-04-25 11:58 | disposition home or self-care (01) | DRG 767 ==
LOC: EDBD → MC 06:03
PROVIDERS: ADMIT Obstetrics & Gynecology; ATTEND Obstetrics & Gynecology